=== PATIENT | male | born 1960 | race Caucasian/White ===

== ENCOUNTER 2024-07-02 07:45 | Emergency (ER) | payer OTHER, SELFPAY ==
[2024-07-02 07:52] VITALS: BP 136/90; PULSE 98; TEMP 37.4; O2SAT 95; BMI 21.2
[2024-07-02 08:16] LABS: Hematocrit 45.7 % (42.0-54.0); Hemoglobin 15.7 g/dL (14.0-18.0); Mean Corpuscular HGB Conc 34.4 g/dL (29.9-35.2); Mean Corpuscular Hemoglobin 32.5 pg (25.9-34.0); Mean Corpuscular Volume 94.6 fL (80.0-94.0); Mean Platelet Volume 9.1 fL (9.5-13.5); Platelet Count 251 10^3/uL (150-450); Red Blood Count 4.83 10^6/uL (4.70-6.10); White Blood Count 9.2 10^3/uL (4.0-11.0)
[2024-07-02] MEDS: IPRATROPIUM/ALBUTEROL SULFATE 3 ML AMPUL.NEB IH (08:19)
[2024-07-02 08:21] LABS: Influenza Virus A Antigen Negative; Influenza Virus B Antigen Negative; Internal Control Within Normal Limits; SARS-CoV-2 Ag POSITIVE (NEGATIVE)
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
[2024-07-02] MEDS: KETOROLAC TROMETHAMINE 30 MG/ML VIAL 15 MG IVP (08:34)
[2024-07-02] MEDS: ONDANSETRON PF 4 MG/2 ML VIAL IV (08:34)
[2024-07-02 08:43] LABS: Band Neutrophils Absolute 0.2 10^3/uL (0.0-0.3)
[2024-07-02 08:48] LABS: Anion Gap 13.5; BUN Creatinine Ratio 12.1; Calcium 8.3 mg/dL (8.5-10.1); Carbon Dioxide 24.3 mmol/L (21.0-32.0); Chloride 102 mmol/L (98-107); Creatine Kinase 145 U/L (39-308); Estimated GFR (African America >60 (>=60 mL/min/1.73m^2); Estimated GFR (Non-African Ame >60 (>=60 mL/min/1.73m^2); Glucose 106 mg/dL (74-106); Potassium 3.8 mmol/L (3.5-5.1); Sodium 136 mmol/L (136-145)
[2024-07-02 09:27] VITALS: PULSE 78; O2SAT 96
== END 2024-07-02 09:29 | disposition home or self-care (01) ==
PROVIDERS: Emergency Provider Emergency Medicine; PCP Family Medicine
DX: U07.1 COVID-19 (principal); F17.210 Nicotine dependence, cigarettes, uncomplicated
CPT/HCPCS: 36415; 80048; 82550; 83735; 85007; 85027; 87804; 87811; 94640; 96374; 96375; 99284; J1885; J2405